=== PATIENT | male | born 1940 | race Caucasian/White ===

== ENCOUNTER 2019-03-26 07:48 | Outpatient (CLI) | payer MEDICARE | END 2019-03-26 07:49 | disposition home or self-care (01) | LOC: DI 07:48 | PROVIDERS: ATTEND Internal Medicine Cardiovascular Disease | DX: R06.02 Shortness of breath (principal); I77.810 Thoracic aortic ectasia | CPT/HCPCS: 93306 ==

== ENCOUNTER 2019-09-25 12:50 | Outpatient (CLI) | payer MEDICARE, OTHER | END 2019-09-25 12:51 | disposition critical access hospital (66) | LOC: EMS 12:50 | PROVIDERS: ATTEND Surgery | DX: R55 Syncope and collapse (principal) | CPT/HCPCS: A0425; A0429 ==

== ENCOUNTER 2019-09-25 13:13 | Inpatient (IN) | payer MEDICARE, OTHER ==
--- NOTE | 2019-09-25 13:23 | ED Physician Documentation ---
PD HPI SYNCOPE - Stated complaint Stated Complaint: SYNCOPE - Chief complaint Chief Complaint: Neuro - History obtained from History obtained from: Patient (79-year-old gentleman with type 2 diabetes and hypertension. He has a history of vagal reactions. He was sitting at lunch, had just finished lunch actually and has syncope. There was no premonition. Reportedly hit his head on the way down but denies any complaints now. He did not know he was coming, there was no chest pain, trouble breathing, or dizziness before hand. On the way here his vital signs were unremarkable and his blood sugar was about 130.), EMS Review of Systems Ten Systems: 10 systems reviewed and negative Constitutional: reports: Reviewed and negative Cardiac: denies: Chest pain / pressure, Palpitations Respiratory: denies: Dyspnea, Cough PD PAST MEDICAL HISTORY - Present Medications Home Medications: Ambulatory Orders Medication Instructions Recorded Confirmed Metformin HCl [Metformin HCl ER] 1,000 mg PO BID 09/25/19 09/25/19 lisinopriL [Prinivil] 20 mg PO DAILY 09/25/19 09/25/19 - Allergies Allergies/Adverse Reactions: Allergies Allergy/AdvReac Type Severity Reaction Status Date / Time No Known Drug Allergies Allergy Verified 09/25/19 13:22 PD ED PE NORMAL - Vitals Vital signs reviewed: Yes - General General: Alert and oriented X 3, No acute distress - HEENT HEENT: PERRL, EOMI - Neck Neck: Supple, no meningeal sign, No bony TTP - Cardiac Cardiac: RRR, No murmur - Respiratory Respiratory: No respiratory distress, Clear bilaterally - Abdomen Abdomen: Non tender - Back Back: No CVA TTP, No spinal TTP - Derm Derm: No rash - Extremities Extremities: No edema, No calf tenderness / cord - Neuro Neuro: Alert and oriented X 3, Normal speech Results - Vitals Vitals: Vital Signs - 24 hr 09/25/19 13:18 Temperature 36.9 C Heart Rate 58 L Respiratory 16 Rate Blood Pressure 154/84 H O2 Saturation 99 Oxygen O2 Source Room air - EKG (time done) 1326 Rate: Rate (enter#) (67) Rhythm: NSR Hendrix: Normal Intervals: RBBB QRS: Normal Ischemia: Normal ST segments Computer interpretation: Agree with computer - Labs Labs: Laboratory Tests 09/25/19 09/25/19 09/25/19 13:39 13:39 13:39 WBC 4.9 RBC 3.99 L Hgb 13.1 L Hct 36.9 L MCV 92.5 MCH 32.8 H MCHC 35.5 RDW 12.1 Plt Count 153 MPV 9.5 Neut # (Auto) 3.2 Lymph # (Auto) 1.0 L Gosper # (Auto) 0.5 Eos # (Auto) 0.2 Baso # (Auto) 0.0 Absolute Nucleated RBC 0.00 Nucleated RBC % 0.0 D-Dimer Sodium 137 Potassium 3.8 Chloride 98 L Carbon Dioxide 26 Anion Gap 13.0 BUN 23 H Creatinine 1.0 Estimated GFR (MDRD) 72 L Glucose 133 H Calcium 9.5 Total Bilirubin 0.8 AST 22 ALT 23 Alkaline Phosphatase 41 L Troponin I High Sens 46.8 H* B-Natriuretic Peptide Total Protein 6.7 Albumin 4.2 Globulin 2.5 Albumin/Globulin Ratio 1.7 Lipase 31 TSH 09/25/19 09/25/19 09/25/19 13:39 13:39 13:39 WBC RBC Hgb Hct MCV MCH MCHC RDW Plt Count MPV Neut # (Auto) Lymph # (Auto) Gosper # (Auto) Eos # (Auto) Baso # (Auto) Absolute Nucleated RBC Nucleated RBC % D-Dimer < 200.0 L Sodium Potassium Chloride Carbon Dioxide Anion Gap BUN Creatinine Estimated GFR (MDRD) Glucose Calcium Total Bilirubin AST ALT Alkaline Phosphatase Troponin I High Sens B-Natriuretic Peptide 51 Total Protein Albumin Globulin Albumin/Globulin Ratio Lipase TSH 0.34 PD MEDICAL DECISION MAKING - ED course ED course: 79-year-old gentleman with hypertension diabetes presents with a concerning episode of syncope without premonition. His EKG was without arrhythmia or ischemia here. He had no chest pain or trouble breathing. He did have a modestly elevated troponin which needs to be trended. Spoke with Dr. Alan for observation. Departure - Departure Disposition: ED Place in Observation Clinical Impression: Syncope Qualifiers: Syncope type: unspecified Qualified Code(s): R55 - Syncope and collapse Condition: Fair Discharge Date/Time: 09/25/19 16:05
[2019-09-25 13:46] LABS: BASOPHILS % (AUTO) 0.8 %; EOSINOPHILS # (AUTO) 0.2 10^3/uL (0.0-0.7); EOSINOPHILS % (AUTO) 3.8 %; HGB - HEMOGLOBIN 13.1 g/dL (14.0-18.0); LYMPHOCYTES % (AUTO) 20.2 %; MEAN CORPUSCULAR HEMOGLOBIN 32.8 pg (27.0-31.0); MEAN CORPUSCULAR HGB CONC 35.5 g/dL (32.0-36.0); MEAN CORPUSCULAR VOLUME 92.5 fL (80.0-94.0); MEAN PLATELET VOLUME 9.5 fL (7.4-11.4); MONOCYTES # (AUTO) 0.5 10^3/uL (0.0-1.0); MONOCYTES % (AUTO) 10.5 %; NEUTROPHILS # (AUTO) 3.2 10^3/uL (1.5-6.6); NEUTROPHILS % (AUTO) 64.3 %; PLT - PLATELET COUNT 153 10^3/uL (130-450); RED BLOOD COUNT 3.99 10^6/uL (4.70-6.10); RED CELL DISTRIBUTION WIDTH 12.1 % (12.0-15.0); WHITE BLOOD COUNT 4.9 x10^3/uL (4.8-10.8)
[2019-09-25 14:00] LABS: ALBUMIN 4.2 g/dL (3.2-5.5); ALBUMIN/GLOBULIN RATIO 1.7 (1.0-2.2); BILIRUBIN,TOTAL 0.8 mg/dL (0.2-1.0); CALCIUM 9.5 mg/dL (8.5-10.3); TOTAL PROTEIN 6.7 g/dL (6.7-8.2)
[2019-09-25] MEDS ORDERED: ONDANSETRON 4 MG/2 ML VIAL IVP PRN (14:54)
[2019-09-25] MEDS ORDERED: SODIUM CHLORIDE FLUSH 0.9% 10 ML SYRINGE IVP PRN (14:54)
[2019-09-25] MEDS ORDERED: ACETAMINOPHEN 325 MG TABLET PO PRN (14:54)
--- NOTE | 2019-09-25 17:13 | HISTORY & PHYSICAL EXAMINATION ---
Chief Complaint - Chief Complaint Chief Complaint: syncope History of Present Illness - History of Present Illness HPI Comment/Other: This is [id number] gentleman with a PMH significant for type 2 diabetes, hypothyroidism, HLD and hypertension who present ER complain of syncope. He report when He was sitting at table after he just finished lunch, then he had syncope. he report he lost his conscience and fall into ground. he denies injury and there was no premonition. He denies chest pain, palpitation, difficult breathing, fever, chill. He report on last year he had twice feeling shortness of breath and at that time he report his BP medication was adjusted, he was found to have hypotension at SBP at 80-90. Then He had all cardiac workup on Feb with his shells inspector which he was told all tests were benign. In Route lab test in ER, he has slight elevated high sensitive troponin at 47. his EKG was without arrhythmia or ischemia change. He denies any chest pain or distress. In ER, his vital signs are unremarkable and hemodynamic stable. pt is admitted for syncope. Pt request full code History - Past Medical History Cardiovascular: reports: Hypertension Neuro: reports: None Endocrine/Autoimmune: reports: Type 2 diabetes Derm: reports: None - Family & Social History Family History: Mother: , Father: Family History Comment/Other: pt report his father from alcoholism, his mother at age 83, he is really unknow the cause of her . Social History Notes: he report he smoked at his teenage, then quited. he denies alcohol and drug issue. Meds/Allgy - Home Medications Home Medications: Ambulatory Orders Medication Instructions Recorded Confirmed Metformin HCl [Metformin HCl ER] 1,000 mg PO BID 09/25/19 09/25/19 lisinopriL [Prinivil] 20 mg PO DAILY 09/25/19 09/25/19 - Allergies Allergies/Adverse Reactions: Allergies Allergy/AdvReac Type Severity Reaction Status Date / Time No Known Drug Allergies Allergy Verified 09/25/19 13:22 Review of Systems - Constitutional Constitutional: denies: Fatigue, Fever, Chills, Malaise, Weakness, Poor appetite, Diaphoresis, Night sweats - Eyes Eyes: denies: Pain, Irritation, Amaurosis, Blurred vision, Spots in vision, Field loss, Vision loss, Dipolpia - Ears, Nose & Throat Ears, Nose & Throat: denies: Ear pain, Hearing loss, Tinnitus, Vertigo, Nasal pain, Nasal discharge, Nosebleeds, Nasal obstruction, Nasal congestion, Postnasal drainage, Dentures, Sore throat, Hoarseness, Mouth lesions, Bleeding gums - Cardiovascular Cariovascular: reports: Syncope. denies: Irregular heart rate, Palpitations, Chest pain, Edema, Lightheadedness, Exertional dyspnea, Decr. exercise tolerance - Respiratory Respiratory: denies: Cough, Sputum production, Wheezing, Snoring, Hemoptysis, Orthopnea, SOB at rest, SOB with exertion - Gastrointestinal Gastrointestinal: denies: Abdominal pain, Abdominal distention, Constipation, Diarrhea, Change in bowel habits, Rectal bleeding, Black stools, Bloody stools, Nausea, Vomiting, Bile emesis, Vicente blood emesis - Genitourinary Genitourinary: denies: Dysuria, Frequency, Urgency, Hematuria, Incontinence, Flank pain, Nocturia, Urethral discharge - Musculoskeletal Musculoskeletal: denies: Muscle pain, Back pain, Muscle aches, Stiffness, Limited range of motion, Muscle weakness, Gout, Joint pain - Integumentary Integumentary: denies: Rash, Pruritis, Dryness, Lumps, Acne, Nail changes - Neurological Neurological: denies: General weakness, Focal weakness, Headache, Dizziness, Numbness, Memory problems, Pre-existing deficit, Seizures, Incoordination, Slurred speech - Psychiatric Psychiatric: denies: Depression, Anxiety, Suicidal, Delusions, Hallucinations, Homicidal - Endocrine Endocrine: denies: Polyuria, Polydypsia, Polyphagia, Intolerance to cold - Hematologic/Lymphatic Hematologic/Lymphatic: denies: Anemia, Bruising, Petechiae, Blood clots, Lymphadenopathy, Bleeding tendencies Exam - Vital Signs Reviewed Vital Signs: Yes Vital Signs: Vital Signs x48h Temp Pulse Pulse Resp BP BP Pulse Ox 09/25/19 17:02 36.5 C 70 18 97 09/25/19 15:55 36.5 C 67 20 135/69 H 97 09/25/19 13:18 36.9 C 58 L 16 154/84 H 99 - Physical Exam General Appearance: positive: No acute distress, Alert. negative: Lethargic Eyes Bilateral: positive: Normal inspection, PERRL, EOMI, No lid inflammation ENT: positive: ENT inspection nml, Pharynx nml, No signs of dehydration. negative: Purulent nasal drainage, Pharyngeal erythema, Oral lesions Neck: positive: Nml inspection, Thyroid nml, No JVD, Trachea midline. negative: Thyromegaly, Lymphadenopathy (R), Lymphadenopathy (L), Stiff neck, Tracheal deviation Respiratory: positive: Chest non-tender, No respiratory distress, Breath sounds nml. negative: Wheezes, Rales, Rhonchi Cardiovascular: positive: Regular rate & rhythm, No murmur, No gallop. negative: Irregularly irregular, Extrasystoles, Tachycardia, Bradycardia, JVD present, Systolic murmur, Diastolic murmur Peripheral Pulses: positive: 2+ Abdomen: positive: Non-tender, No organomegaly, Nml bowel sounds, No distention. negative: Tenderness, Guarding, Rebound Back: positive: Nml inspection. negative: CVA tenderness (R), CVA tenderness (L) Skin: positive: Color nml, No rash, Warm, Dry. negative: Cyanosis, Diaphoresis, Pallor Extremities: positive: Non-tender, Full ROM, Nml appearance. negative: Calf tenderness, Kristi's sign/cords Neurologic/Psychiatric: positive: Oriented x3, Motor nml, Sensation nml, Mood/affect nml. negative: Weakness, Sensory loss, Facial droop, Slurred/abnml speech, Depressed mood/affect Sepsis Event Note (H) - Evaluation Current Stage of Sepsis: Ruled out Conclusion/Plan - Problem List (1) Syncope Conclusion/Plan: pt report he had syncope episode today. he denies injury, denies hx of seizure. slight elevated troponin and unremarkable EKG. he had stress test and all c ardiac work on February of 2019 with his shells inspector. he denies chest pain, palpitation. it is unknown the etiology now order ECHO continue serial troponin tele and vital monitor order US of carotid order orthostatic vital monitor Qualifiers: Syncope type: unspecified Qualified Code(s): R55 - Syncope and collapse (2) DM2 (diabetes mellitus, type 2) Conclusion/Plan: glucose 133 today, pt took Metformin at home. start on slide scale, check A1C, and start hypoglycemia protocol (3) HTN (hypertension) Conclusion/Plan: stable, continue home meds Lisinopril. nurse and tele report pt had second degree heart braulio. order EKG again, and hold Atenolol, continue tele and vital monitor (4) Hypothyroidism Conclusion/Plan: pt report he took Levothyroxine 112 mcg at home, continue and check TSH (5) Elevated troponin Conclusion/Plan: pt has elevated troponin at 47 but pt denies chest pain, and cardiac distress. EKG reveals NSR, repeated EKG reveals similar. Nurse report he had second degree heart braulio but repeated EKG did not reveals that. pt has NSR. continue serial troponin and order tele monitor. order nitro PRN - Lab Results Fish Bones: 09/25/19 13:39 09/25/19 13:39 Core Measures - Anticipated LOS I expect patient to be DC'd or transferred within 96 hours.: Yes - DVT/VTE - Prophylaxis VTE/DVT Device ordered at admit?: Yes VTE/DVT Prophylaxis med ordered at admit?: Yes
[2019-09-25] MEDS: INSULIN ASPART 300 UNIT/3 ML PEN SUBQ SCH ×2 (17:40→21:25)
[2019-09-25] MEDS ORDERED: NITROGLYCERIN SL 0.4 MG TABLET SL PRN (17:53)
[2019-09-25] MEDS: SODIUM CHLORIDE FLUSH 0.9% 10 ML SYRINGE IVP SCH (18:00)
[2019-09-25 20:27] LABS: HB2 TOTAL 13.6 g/dL; HEMOGLOBIN A1C 0.61 g/dL; HEMOGLOBIN A1C % 6.3 % (4.6-6.2)
[2019-09-25] MEDS ORDERED: atenoloL 25 MG TABLET PO SCH (21:00)
[2019-09-25] MEDS ORDERED: lisinopriL 20 MG TABLET PO SCH (21:00)
[2019-09-25] MEDS: FAMOTIDINE 20 MG TABLET PO SCH (21:24)
[2019-09-26] MEDS: SODIUM CHLORIDE FLUSH 0.9% 10 ML SYRINGE IVP SCH ×4 (01:08→21:03)
--- NOTE | 2019-09-26 01:08 | PROVIDER PROGRESS NOTE ---
Gear Tooth Lapping Machine Operator Note - Gear Tooth Lapping Machine Operator Note Gear Tooth Lapping Machine Operator Note: Patient has been having frequent pauses ranging from 2-3 seconds since 5pm on 09/25/2019. As a result the roofer vinyl coating infection control specialist for his roofer vinyl coating (Dr Gibbons) was contacted. Recommendations were to continue monitoring the patient for now. To give at least 48 hours for atenolol to wash out. If pauses become longer, more frequent and patient bradycardic, to administer atropine and re-consult with cardiology for revelation. Pacer pads are in place.
--- NOTE | 2019-09-26 03:08 | Ultrasound Report ---
Reason: syncope Procedure Date: 09/26/2019 Accession Number: [id number] / [id number] Procedure: US - Carotid Doppler Complete CPT Code: Final Report FULL RESULT: EXAM: BILATERAL CAROTID AND VERTEBRAL ARTERY DUPLEX DOPPLER ULTRASOUND EXAM DATE: 09/26/2019 02:03 AM CLINICAL HISTORY: Syncope. COMPARISON: None. TECHNIQUE: Grayscale imaging, color Doppler, and duplex spectral Doppler were used to evaluate the carotid and vertebral arteries bilaterally. Static images were obtained. FINDINGS: No significant plaque is identified in the right or left common or internal carotid arteries. Normal antegrade flow is present in bilateral vertebral arteries. VELOCITIES (cm/sec): Right CCA mid: PSV 75 cm/sec CCA dist: PSV 73 cm/sec ICA prox: PSV 42 cm/sec, EDV 19 cm/sec ICA mid: PSV 58 cm/sec, EDV 22 cm/sec ICA dist: PSV 65 cm/sec, EDV 27 cm/sec ECA: PSV 119 cm/sec Vert: PSV 37 cm/sec ICA/CCA: 0.9 Left CCA mid: PSV 67 cm/sec CCA dist: PSV 61 cm/sec ICA prox: PSV 96 cm/sec, EDV 31 cm/sec ICA mid: PSV 79 cm/sec, EDV 35 cm/sec ICA dist: PSV 70 cm/sec, EDV 25 cm/sec ECA: PSV 116 cm/sec Vert: PSV 58 cm/sec ICA/CCA: 1.2 ICA diameter stenosis: Right: <50% by velocity and <70% by NASCET criteria. Left: <50% by velocity and <70% by NASCET criteria. IMPRESSION: 1. No significant bilateral carotid artery plaquing. 2. In the right carotid artery there are no elevated carotid artery velocities to suggest hemodynamically significant stenosis. 3. In the left carotid artery there are no elevated carotid artery velocities to suggest hemodynamically significant stenosis. 4. Normal antegrade flow is present in bilateral vertebral arteries. General Recommendations: Stenosis =50% ICA - Follow-up ultrasound 6-12 months Stenosis <50% ICA - High Risk Patient with plaque - Follow-up ultrasound 1-2 years Normal Study but High Risk Patient - Follow-up ultrasound 3-5 years Management recommendations and diagnostic criteria are based on current IAC endorsed standards in Carotid Artery Stenosis: Grayscale and Doppler Ultrasound Diagnosis. Validated velocity measurements with angiographic measurements and velocity criteria are extrapolated from diameter data as defined by the Society of Radiologists in Ultrasound Consensus Conference Radiology 2003; 229;340-346. RADIA
[2019-09-26 05:32] LABS: BASOPHILS % (AUTO) 0.8 %; EOSINOPHILS # (AUTO) 0.2 10^3/uL (0.0-0.7); EOSINOPHILS % (AUTO) 4.2 %; HGB - HEMOGLOBIN 12.9 g/dL (14.0-18.0); LYMPHOCYTES # (AUTO) 1.5 10^3/uL (1.5-3.5); LYMPHOCYTES % (AUTO) 32.1 %; MEAN CORPUSCULAR HEMOGLOBIN 31.8 pg (27.0-31.0); MEAN CORPUSCULAR HGB CONC 34.7 g/dL (32.0-36.0); MEAN CORPUSCULAR VOLUME 91.6 fL (80.0-94.0); MEAN PLATELET VOLUME 9.4 fL (7.4-11.4); MONOCYTES # (AUTO) 0.5 10^3/uL (0.0-1.0); MONOCYTES % (AUTO) 10.6 %; NEUTROPHILS # (AUTO) 2.5 10^3/uL (1.5-6.6); NEUTROPHILS % (AUTO) 52.1 %; PLT - PLATELET COUNT 146 10^3/uL (130-450); RED BLOOD COUNT 4.06 10^6/uL (4.70-6.10); RED CELL DISTRIBUTION WIDTH 11.9 % (12.0-15.0); WHITE BLOOD COUNT 4.7 x10^3/uL (4.8-10.8)
[2019-09-26 05:41] LABS: CALCIUM 9.3 mg/dL (8.5-10.3); CREATININE 0.9 mg/dL (0.6-1.2); MAGNESIUM 1.9 mg/dL (1.7-2.8)
[2019-09-26] MEDS: LEVOTHYROXINE 112 MCG TABLET PO SCH (06:40)
[2019-09-26] MEDS ORDERED: lisinopriL 20 MG TABLET PO SCH ×2 (09:00→11:00)
[2019-09-26] MEDS ORDERED: ENOXAPARIN 40 MG/0.4 ML SYRINGE SUBQ SCH (09:00)
[2019-09-26] MEDS: INSULIN ASPART 300 UNIT/3 ML PEN SUBQ SCH ×4 (09:24→21:02)
[2019-09-26] MEDS: FAMOTIDINE 20 MG TABLET PO SCH ×2 (09:24→21:01)
[2019-09-26] MEDS ORDERED: ATROPINE ABBOJECT 1 MG/10 ML SYRINGE IVP PRN (10:33)
--- NOTE | 2019-09-26 10:59 | XRAY Report ---
Reason: syncope and recurrent long cardia pauses Procedure Date: 09/26/2019 Accession Number: [id number] / [id number] Procedure: XR - Chest 1 View X-Ray CPT Code: 99807 Final Report FULL RESULT: EXAM: CHEST RADIOGRAPHY EXAM DATE: 09/26/2019 10:46 AM. CLINICAL HISTORY: Syncope and recurrent long cardia pauses. COMPARISON: None. TECHNIQUE: 1 view. FINDINGS: Defibrillator pad obscures portions of the right hemithorax. ECG leads and unidentified wires are also seen. Lungs/Pleura: No focal opacities evident. No pleural effusion. No pneumothorax. Mediastinum: Aortic calcifications, cardiomediastinal silhouette is otherwise within upper limits of normal for technique. Other: None. IMPRESSION: Limited exam with no convincing acute cardiopulmonary abnormality. RADIA
--- NOTE | 2019-09-26 13:32 | PHARMACY PROGRESS NOTE ---
- Best Possible Medication History Admit Date and Time: 09/26/19 1004 Processed by: Pharmacy Medication History completed: Yes Patient Interview: Completed Secondary Source(s): Physician records, Pharmacy records As the person ultimately responsible for medication therapy, providers are able to order a medication from an existing home medication list in [facility] via the "Reconcile Routine" prior to Confirmation of that medication by student support services director. Such practice is discouraged except when the physician, in their clinical judgment, deems that a medical need exists for a medication without regard to previous use.
--- NOTE | 2019-09-26 13:35 | PROVIDER PROGRESS NOTE ---
Assessment/Plan - Problem List (1) Asystole Assessment/Plan: Since being put on telemetry at 5 PM yesterday, he has had intermittent sinus pauses and asystole between 2 seconds and 6 seconds. There is no pattern as to whether they are decreasing in length or decreasing in frequency, after I reviewed telemetry strips carefully. Will admit to full inpatient status from Observation status due to severe arr hythmia. Will move patient to the ICU, in case of Code Blue from frequent asystoles Keep 1 amp of atropine at bedside. No OOB, only bedrest. Continue with topical pacemaker patches and keep external portable pacemaker available. Theophylline IV drip could be used for increasing heart rate however it is not available at this hospital. Aminophylline IV pushes are only available. I discussed at length with the patient, , 3 daughters and a grand-daughter at bedside, the possibility of needing transfer for a permanent pacemaker implant if there is no improvement after washout of atenolol in the next 24 hours, which is what his Data Management Manager Dr Gibbons had advised to thre Data Virtualization Consultant (he has been here now 24 hours since the last Atenolol dose). (2) Syncope Qualifiers: Syncope type: unspecified Qualified Code(s): R55 - Syncope and collapse Assessment/Plan: After the patient fell from his chair to the floor in his home while having lunch, the was able to awaken him by yelling and shaking and raise him and he sat in a chair. 911 was called and they advised that he be in a more comfor table location so he walked over to a couch but did not raise his legs. When sports bookmaker arrived, his vital signs were stable according to the patient but he was complaining of dizziness. Patient also gave me details about being told he has "vasovagal episodes" which occur if he has a strong cough or a burp, which have happened for the past 5 years, but rarely, occurring about once month. But he had 2 of these episodes immediately before the syncopal episode, he can now recall. Patient has been on Atenolol for 25 years for blood pressure control and he himself moved to bedtime dosing 2 weeks ago. (3) DM2 (diabetes mellitus, type 2) Assessment/Plan: Metformin has been stopped while he is here and he is on CC diet and SS insulin coverage. A1c is 6.3 indicating very good glu control. (4) HTN (hypertension) Assessment/Plan: Lisinopril/HCTZ reordered with hold parameters Atenolol stopped (5) Hypothyroidism Assessment/Plan: Synthroid dose ordered - Current Meds Current Meds: Current Medications Generic Name Dose Route Start Last Admin Trade Name Freq PRN Reason Stop Dose Admin Famotidine 20 mg 09/25/19 21:00 09/26/19 09:24 Pepcid PO Not Given BID [facility] Insulin Aspart 1 - 5 unit 09/25/19 17:00 09/26/19 11:39 Novolog SUBQ Not Given 0800,1200,1700,2100 [facility] Protocol Levothyroxine Sodium 112 mcg 09/26/19 07:00 09/26/19 06:40 Synthroid PO 112 mcg QDAC [facility] Administration Sodium Chloride 10 ml 09/25/19 17:00 09/26/19 09:24 Normal Saline Flush 0.9% IVP 10 ml 0100,0900,1700 [facility] Administration - Lab Result Fish Bone Diagrams: 09/26/19 05:20 09/26/19 05:20 - Additional Planning My Orders: My Active Orders 09/26/19 10:29 Daily Weight [RC] 0600 Initiate ICU Electrolyte Prot. [RC] QSHIFT Vital Signs [RC] Q1HR Code Status [OTHERS] Routine 09/26/19 10:31 Telemetry- [RC] Q4HR 09/26/19 10:33 Atropine Abboject 1 mg IVP PRN PRN 09/27/19 09:00 lisinopriL [Zestril] 20 mg PO DAILY Subjective - Subjective Patient Reports: Resting Comfortably Objective Vital Signs: Vital Signs - 24 hr 09/25/19 09/25/19 09/25/19 15:55 17:02 20:00 Temperature 36.5 C 36.5 C 36.5 C Heart Rate 70 Heart Rate [ 66 Brachial] Heart Rate [ 67 Radial] Heart Rate [ Sitting (After 1 Minute)] Heart Rate [ Standing (After 1 Minute)] Heart Rate [ Supine] Respiratory 20 18 20 Rate Blood Pressure 135/69 H [Left Brachial artery] Blood Pressure 125/62 [Right Brachial artery] Blood Pressure [Sitting (After 1 Minute)] Blood Pressure [Standing ( After 1 Minute) ] Blood Pressure [Supine] O2 Saturation 97 97 97 09/25/19 09/26/19 09/26/19 20:05 00:15 00:46 Temperature 36.6 C Heart Rate Heart Rate [ 70 Brachial] Heart Rate [ Radial] Heart Rate [ 70 73 Sitting (After 1 Minute)] Heart Rate [ 72 78 Standing (After 1 Minute)] Heart Rate [ 69 66 Supine] Respiratory 18 Rate Blood Pressure [Left Brachial artery] Blood Pressure 116/64 [Right Brachial artery] Blood Pressure 128/72 118/71 [Sitting (After 1 Minute)] Blood Pressure 109/64 109/66 [Standing ( After 1 Minute) ] Blood Pressure 126/64 118/65 [Supine] O2 Saturation 09/26/19 09/26/19 09/26/19 05:00 08:19 09:00 Temperature 36.2 C L 36.6 C Heart Rate Heart Rate [ 63 68 Brachial] Heart Rate [ Radial] Heart Rate [ 70 Sitting (After 1 Minute)] Heart Rate [ 78 Standing (After 1 Minute)] Heart Rate [ 73 Supine] Respiratory 18 16 Rate Blood Pressure [Left Brachial artery] Blood Pressure 104/54 L 105/56 L [Right Brachial artery] Blood Pressure 116/76 [Sitting (After 1 Minute)] Blood Pressure 111/76 [Standing ( After 1 Minute) ] Blood Pressure 117/69 [Supine] O2 Saturation 93 95 09/26/19 09/26/19 09/26/19 10:45 11:37 12:00 Temperature 36.7 C Heart Rate Heart Rate [ 63 66 75 Brachial] Heart Rate [ Radial] Heart Rate [ Sitting (After 1 Minute)] Heart Rate [ Standing (After 1 Minute)] Heart Rate [ Supine] Respiratory 20 16 16 Rate Blood Pressure 126/71 140/76 H 136/79 H [Left Brachial artery] Blood Pressure [Right Brachial artery] Blood Pressure [Sitting (After 1 Minute)] Blood Pressure [Standing ( After 1 Minute) ] Blood Pressure [Supine] O2 Saturation 97 98 98 09/26/19 13:00 Temperature Heart Rate Heart Rate [ 67 Brachial] Heart Rate [ Radial] Heart Rate [ Sitting (After 1 Minute)] Heart Rate [ Standing (After 1 Minute)] Heart Rate [ Supine] Respiratory 14 Rate Blood Pressure 132/81 H [Left Brachial artery] Blood Pressure [Right Brachial artery] Blood Pressure [Sitting (After 1 Minute)] Blood Pressure [Standing ( After 1 Minute) ] Blood Pressure [Supine] O2 Saturation 98 Oxygen O2 Source Room air I&O (Last 24 Hrs): Intake and Output Totals x24h 09/24/19 09/25/19 09/26/19 23:59 23:59 23:59 Intake Total 930 730 Balance 930 730 General: Alert, Oriented x3 HEENT: Mucous membr. moist/pink Neck: Supple, No JVD Neuro: Alert, Non Focal Cardiovascular: Regular rate, No murmurs Abdomen: Normal bowel sounds, Soft Extremities: No edema - Results Results: Laboratory Results WBC 4.7 x10^3/uL (4.8-10.8) L 09/26/19 05:20 RBC 4.06 10^6/uL (4.70-6.10) L 09/26/19 05:20 Hgb 12.9 g/dL (14.0-18.0) L 09/26/19 05:20 Hct 37.2 % (42.0-52.0) L 09/26/19 05:20 MCV 91.6 fL (80.0-94.0) 09/26/19 05:20 MCH 31.8 pg (27.0-31.0) H 09/26/19 05:20 MCHC 34.7 g/dL (32.0-36.0) 09/26/19 05:20 RDW 11.9 % (12.0-15.0) L 09/26/19 05:20 Plt Count 146 10^3/uL (130-450) 09/26/19 05:20 MPV 9.4 fL (7.4-11.4) 09/26/19 05:20 Neut # (Auto) 2.5 10^3/uL (1.5-6.6) 09/26/19 05:20 Lymph # (Auto) 1.5 10^3/uL (1.5-3.5) 09/26/19 05:20 [place] # (Auto) 0.5 10^3/uL (0.0-1.0) 09/26/19 05:20 Eos # (Auto) 0.2 10^3/uL (0.0-0.7) 09/26/19 05:20 Baso # (Auto) 0.0 10^3/uL (0.0-0.1) 09/26/19 05:20 Absolute Nucleated RBC 0.00 x10^3/uL 09/26/19 05:20 Nucleated RBC % 0.0 /100WBC 09/26/19 05:20 Whole Blood INR 1.0 (0.8-1.2) 09/26/19 11:08 D-Dimer < 200.0 ng/mL (200.0-255.0) L 09/25/19 13:39 Sodium 141 mmol/L (135-145) 09/26/19 05:20 Potassium 3.8 mmol/L (3.5-5.0) 09/26/19 05:20 Chloride 104 mmol/L (101-111) 09/26/19 05:20 Carbon Dioxide 26 mmol/L (21-32) 09/26/19 05:20 Anion Gap 11.0 (6-13) 09/26/19 05:20 BUN 19 mg/dL (6-20) 09/26/19 05:20 Creatinine 0.9 mg/dL (0.6-1.2) 09/26/19 05:20 Estimated GFR (MDRD) 82 (>89) L 09/26/19 05:20 Glucose 132 mg/dL (70-100) H 09/26/19 05:20 Glycated Hemoglobin 6.3 % (4.6-6.2) H 09/25/19 19:53 Estim Average Glucose 134 (70-100) H 09/25/19 19:53 Calcium 9.3 mg/dL (8.5-10.3) 09/26/19 05:20 Magnesium 1.9 mg/dL (1.7-2.8) 09/26/19 05:20 Total Bilirubin 0.8 mg/dL (0.2-1.0) 09/25/19 13:39 AST 22 IU/L (10-42) 09/25/19 13:39 ALT 23 IU/L (10-60) 09/25/19 13:39 Alkaline Phosphatase 41 IU/L (42-121) L 09/25/19 13:39 Troponin I High Sens 40.7 ng/L (2.3-19.7) H* 09/25/19 19:53 B-Natriuretic Peptide 51 pg/mL (5-100) 09/25/19 13:39 Total Protein 6.7 g/dL (6.7-8.2) 09/25/19 13:39 Albumin 4.2 g/dL (3.2-5.5) 09/25/19 13:39 Globulin 2.5 g/dL (2.1-4.2) 09/25/19 13:39 Albumin/Globulin Ratio 1.7 (1.0-2.2) 09/25/19 13:39 Lipase 31 U/L (22-51) 09/25/19 13:39 TSH 0.36 uIU/mL (0.34-5.60) 09/26/19 05:20 Nasal Screen MRSA (PCR) NEGATIVE (NEGATIVE) 09/26/19 10:50 Sepsis Event Note (H) - Evaluation Current Stage of Sepsis: Ruled out
[2019-09-27 05:06] LABS: BASOPHILS % (AUTO) 0.7 %; EOSINOPHILS # (AUTO) 0.2 10^3/uL (0.0-0.7); EOSINOPHILS % (AUTO) 3.7 %; LYMPHOCYTES # (AUTO) 1.6 10^3/uL (1.5-3.5); LYMPHOCYTES % (AUTO) 27.9 %; MEAN CORPUSCULAR HEMOGLOBIN 32.7 pg (27.0-31.0); MEAN CORPUSCULAR HGB CONC 34.6 g/dL (32.0-36.0); MEAN CORPUSCULAR VOLUME 94.5 fL (80.0-94.0); MEAN PLATELET VOLUME 9.3 fL (7.4-11.4); MONOCYTES # (AUTO) 0.7 10^3/uL (0.0-1.0); MONOCYTES % (AUTO) 11.4 %; NEUTROPHILS # (AUTO) 3.2 10^3/uL (1.5-6.6); NEUTROPHILS % (AUTO) 56.1 %; PLT - PLATELET COUNT 148 10^3/uL (130-450); RED BLOOD COUNT 3.98 10^6/uL (4.70-6.10); WHITE BLOOD COUNT 5.7 x10^3/uL (4.8-10.8)
[2019-09-27 05:20] LABS: ALBUMIN 3.8 g/dL (3.2-5.5); CALCIUM 9.1 mg/dL (8.5-10.3); PHOSPHORUS 3.8 mg/dL (2.5-4.6)
[2019-09-27] MEDS: LEVOTHYROXINE 112 MCG TABLET PO SCH (06:58)
[2019-09-27] MEDS: INSULIN ASPART 300 UNIT/3 ML PEN SUBQ SCH ×2 (07:48→12:14)
[2019-09-27] MEDS: FAMOTIDINE 20 MG TABLET PO SCH (08:50)
[2019-09-27] MEDS: SODIUM CHLORIDE FLUSH 0.9% 10 ML SYRINGE IVP SCH (08:50)
[2019-09-27] MEDS ORDERED: lisinopriL 20 MG TABLET PO SCH (09:00)
--- NOTE | 2019-09-27 12:22 | DISCHARGE SUMMARY ---
Discharge Summary Admit Date: 09/25/19 Discharge Date: 09/27/19 Discharging Provider: Dr Clarissa Alan Primary Care Provider: Dr Pola Renner Code Status: Attempt Resuscitation Condition at Discharge: Fair Discharge Disposition: 02 Transfer Acute Care Hosp Dis[facility]: [facility] - DIAGNOSES Admission Diagnoses: (1) Syncope (2) DM2 (diabetes mellitus, type 2) (3) HTN (hypertension) (4) Hypothyroidism (5) Elevated troponin Discharge Diagnoses with Status of Each Condition: See below - HPI History of Present Illness: From the admission H&P of Romel Rodriguez NP: This is a 79-year-old gentleman with a PMH significant for type 2 diabetes, hypothyroidism, HLD and hypertension who present ER complaint of syncope. He report when he was sitting at a table after he just finished lunch, then he had syncope. He reported he lost his conscience and fall into ground falling on his left face. He denies injury and there was no warning. He denies chest pain, palpitation, difficult breathing, fever, chill. He reported that last year he had several episodes of feeling shortness of breath and at that time he report his BP medication was adjusted, he was found to have hypotension at SBP at 80- 90. Then He had all cardiac workup on February of 2019 with his full stack web developer which he was told all tests were benign. In Route lab test in ER, he has slight elevated high sensitive troponin at 47. his EKG was without arrhythmia or ischemia change. He denies any chest pain or distress. In ER, his vital signs are unremarkable and hemodynamic stable. pt is admitted for syncope. Pt request full code status. - CONSULTS | PROCEDURES Consultations: Phone call with covering Advertising Sales Assistant for Dr Gibbons on 09/26/19 - HOSPITAL COURSE Hospital Course: (1) Asystole The patient has been on Atenolol daily for 25 years for blood pressure control, and he himself moved it to bedtime dosing just 2 weeks ago. Since being put on telemetry at admission, he had frequent sinus pauses in asystole lasting between 2 seconds and 6 seconds long. The Atenolol was stopped. The [place] reached his Advertising Sales Assistant's covering partner who advised allowing 48 hours of Atenolol wash-out to see if asystoles decreased. He was admitted to full Inpatient status from Observation status due to severe tamika-arrhythmia, and moved to the ICU, in case of Code Blue from frequent asystoles, and had topical pacer pads attached and Atropine at the bedside in case needed. After allowing 48-hours without Atenolol or any heart rate slowing meds, there was no decrease in the frequency or length of pauses in asystole, and he was accepted in transfer to Cardiology at [facility] for a likely permanent pacemaker implant. (2) Syncope After the patient fell from his chair to the floor in his home while having [facility], the was able to awaken him by yelling and shaking and raised him and he sat in a chair. 911 was called and they advised that he be in a more comfortable location so he walked over to a couch but did not raise his legs. When apartment groundskeeper arrived, his vital signs were stable according to the patient but he was complaining of dizziness. Patient also gave details about being told he has "vasovagal episodes" which occur if he has a strong cough or a burp, which have happened for the past 5 years, but rarely, occurring about once month. But he had 2 of these episodes immediately before the syncopal episode, he can now recall. (3) DM2 (diabetes mellitus, type 2) Metformin has been stopped while he was here, in case of need for imaging with dye. He was on CC diet and SS insulin coverage. A1c is 6.3 indicating very good glu control. (4) HTN (hypertension) Lisinopril/HCTZ were reordered with hold parameters, but Atenolol was stopped. (5) Hypothyroidism The TSH was 0.34 and his Synthroid dose was ordered here. - ALLERGIES Allergies/Adverse Reactions: Allergies Allergy/AdvReac Type Severity Reaction Status Date / Time No Known Drug Allergies Allergy Verified 09/25/19 13:22 - MEDICATIONS Home Medications: Ambulatory Orders Medication Instructions Recorded Confirmed Metformin HCl [Metformin HCl ER] 1,000 mg PO BID 09/25/19 09/25/19 Alpha Lipoic Acid 250 mg PO QDBREAKFAST 09/26/19 09/26/19 Alpha Lipoic Acid 350 mg PO QPM 09/26/19 09/26/19 Aspirin Chewable [[place] 81 mg PO DAILY 09/26/19 09/26/19 Aspirin] Atorvastatin [Lipitor] 10 mg PO QPM 09/26/19 09/26/19 Biotin 2,500 mcg PO DAILY 09/26/19 09/26/19 Cholecalciferol (Vitamin D3) 2,000 unit PO DAILY 09/26/19 09/26/19 [Vitamin D3] Chromium Picolinate 200 mcg PO DAILY 09/26/19 09/26/19 Levothyroxine [Synthroid] 112 mcg PO QDAC 09/26/19 09/26/19 Lisinopril/Hydrochlorothiazide 1 tab PO DAILY 09/26/19 09/26/19 [Lisinopril-Hctz 20-12.5 mg Tab] Magnesium Citrate 200 mg PO BID 09/26/19 09/26/19 Multivitamin [Theragran] 1 each PO DAILY 09/26/19 09/26/19 Nitroglycerin 0.4 mg SL Q5M PRN 09/26/19 09/26/19 [place]-3S/Dha/Epa/Fish Oil [Fish 1 each PO BID 09/26/19 09/26/19 Oil 1,200 mg Softgel] Turmeric 1 cap PO DAILY 09/26/19 09/26/19 Vitamin E 400 unit PO DAILY 09/26/19 09/26/19 - PHYSICAL EXAM AT DISCHARGE General Appearance: positive: No acute distress, Alert Eyes Bilateral: positive: Normal inspection, EOMI ENT: positive: ENT inspection nml, No signs of dehydration Neck: positive: Nml inspection, No JVD Respiratory: positive: No respiratory distress, Breath sounds nml Cardiovascular: positive: No murmur, Bradycardia Abdomen: positive: Non-tender, Nml bowel sounds, No distention Skin: positive: Color nml Extremities: positive: No pedal edema Neurologic/Psychiatric: positive: Oriented x3, Other (Non-focal) - LABS Result Diagrams: 09/27/19 04:20 09/27/19 04:20 - DIAGNOSTIC IMAGING Diagnostic Imaging Results: Final report reviewed - FOLLOW UP Follow Up: This will be determined after his stay at [facility]. - TIME SPENT Time Spent in Discharge (Minutes): 60
--- NOTE | 2019-09-27 12:22 | Discharge Plan ---
Discharge Plan Problem Reviewed?: Yes Disposition: 02 Transfer Acute Care Hosp Condition: Fair Instruction Topics: Famotidine tablets or gelcaps No Smoking: If you smoke, Please STOP! Call for help. Follow-up with: Pola Renner MD [Primary Care Provider] -
[2019-09-27 14:05] VITALS: BP 118/83
== END 2019-09-27 14:26 | disposition short-term general hospital (02) | DRG 298 ==
LOC: EDUNIT# → ED 13:13 → MS2 14:55 → OBSVTOIN 09-26 10:04 → ICU 09-26 10:34
PROVIDERS: ADMIT Nurse Practitioner Gerontology; ATTEND Internal Medicine
DX: I46.9 Cardiac arrest, cause unspecified (principal); R55 Syncope and collapse; E11.9 Type 2 diabetes mellitus without complications; E78.5 Hyperlipidemia, unspecified; E03.9 Hypothyroidism, unspecified; I10 Essential (primary) hypertension; R79.89 Other specified abnormal findings of blood chemistry; Z79.84 Long term (current) use of oral hypoglycemic drugs; Z87.891 Personal history of nicotine dependence; Z91.81 History of falling
CPT/HCPCS: 36415; 71045; 80048; 80053; 82040; 83036; 83690; 83735; 83880; 84100; 84443; 84484; 85025; 85379; 85610; 87150; 93005; 93306; 93880; 99284; 99285; A9270; G0378

== ENCOUNTER 2019-09-27 14:35 | Outpatient (CLI) | payer MEDICARE, OTHER | END 2019-09-27 14:36 | disposition short-term general hospital (02) | LOC: EMS 14:35 | PROVIDERS: ATTEND Surgery | DX: I49.9 Cardiac arrhythmia, unspecified (principal) | CPT/HCPCS: A0425; A0426 ==

== ENCOUNTER 2022-02-07 18:59 | Outpatient (CLI) | payer MEDICARE, OTHER | END 2022-02-07 19:00 | disposition left against medical advice (07) | LOC: EMS 18:59 | DX: S61.212A Laceration without foreign body of right middle finger without damage to nail, initial encounter (principal); W20.8XXA Other cause of strike by thrown, projected or falling object, initial encounter; Y92.007 Garden or yard of unspecified non-institutional (private) residence as the place of occurrence of the external cause ==

== ENCOUNTER 2022-02-07 19:45 | Emergency (ER) | payer MEDICARE, OTHER ==
[2022-02-07] MEDS ORDERED: TETANUS/DIPHTHERIA/PERTUSSIS 0.5 ML SYRINGE IM ONE (20:13)
[2022-02-07] MEDS ORDERED: BACITRACIN ZINC OINT 1 PACKET TOP STA (20:13)
--- NOTE | 2022-02-07 20:45 | ED Physician Documentation ---
History of Present Illness - Stated complaint Stated Complaint: RT FINGER LAC - Chief complaint Chief Complaint: Laceration - Additonal information Additional information: 81-year-old male presents emergency department for evaluation of a rather large laceration on the dorsum of his right index finger sustained when he cut it on glass in the garden. Uncertain of last tetanus. [id number]. Review of Systems Constitutional: denies: Fever, Chills Eyes: reports: Reviewed and negative Nose: reports: Reviewed and negative Throat: reports: Reviewed and negative Cardiac: reports: Reviewed and negative Respiratory: reports: Reviewed and negative Skin: reports: Laceration (s) PD PAST MEDICAL HISTORY - Past Medical History Cardiovascular: Hypertension Neuro: None Endocrine/Autoimmune: Type 2 diabetes Derm: None - Present Medications Home Medications: Ambulatory Orders Medication Instructions Recorded Confirmed Metformin HCl [Metformin HCl ER] 1,000 mg PO BID 09/25/19 09/25/19 Alpha Lipoic Acid 250 mg PO QDBREAKFAST 09/26/19 09/26/19 Alpha Lipoic Acid 350 mg PO QPM 09/26/19 09/26/19 Aspirin Chewable [[place] 81 mg PO DAILY 09/26/19 09/26/19 Aspirin] Atorvastatin [Lipitor] 10 mg PO QPM 09/26/19 09/26/19 Biotin 2,500 mcg PO DAILY 09/26/19 09/26/19 Cholecalciferol (Vitamin D3) 2,000 unit PO DAILY 09/26/19 09/26/19 [Vitamin D3] Chromium Picolinate 200 mcg PO DAILY 09/26/19 09/26/19 Levothyroxine [Synthroid] 112 mcg PO QDAC 09/26/19 09/26/19 Lisinopril/Hydrochlorothiazide 1 tab PO DAILY 09/26/19 09/26/19 [Lisinopril-Hctz 20-12.5 mg Tab] Magnesium Citrate 200 mg PO BID 09/26/19 09/26/19 Multivitamin [Theragran] 1 each PO DAILY 09/26/19 09/26/19 Nitroglycerin 0.4 mg SL Q5M PRN 09/26/19 09/26/19 [place]-3S/Dha/Epa/Fish Oil [Fish 1 each PO BID 09/26/19 09/26/19 Oil 1,200 mg Softgel] Turmeric 1 cap PO DAILY 09/26/19 09/26/19 Vitamin E 400 unit PO DAILY 09/26/19 09/26/19 - Allergies Allergies/Adverse Reactions: Allergies Allergy/AdvReac Type Severity Reaction Status Date / Time No Known Drug Allergies Allergy Verified 02/07/22 19:59 - Social History Smoking Status: Former smoker PD ED PE EXPANDED - Extremities Extremities: Right finger(s) (4 cm laceration on dorsum of right middle finger extending across the PIP joint. He does have preserved flexion extension against resistance. Bleeding is controlled with pressure.) Results - Vitals Vitals: Vital Signs - 24 hr 02/07/22 19:55 Temperature 36.6 C Heart Rate 72 Respiratory 16 Rate Blood Pressure 151/74 H O2 Saturation 97 Oxygen O2 Source Room air Procedures - Laceration (location) Right middle finger Length in cm: 4 Wound type: Irregular, Into subcut fat, Into muscle, Clean Neurovascular status: Sensory intact, Motor intact, Vascular intact Tendon involvement: Tendon intact Anesthesia: Lidocaine 1% Wound preparation: Chlorhexadine, Irrigated copiously NS Skin layer closure: Interrupted, Sutures - enter # (7) Other: Patient tolerated well, No complications, Tetanus booster given PD MEDICAL DECISION MAKING - ED course Complexity details: reviewed results, re-evaluated patient, considered differential, d/w patient ED course: 81-year-old male presents emergency department for a laceration on his right middle finger sustained when cut on glass in the garden. Tetanus was updated today. Laceration did not reveal any findings of tendon injury. Wound was easily closed at the bedside. Routine wound care and emergent return precautions were discussed Departure - Departure Disposition: 01 Home, Self Care Clinical Impression: Laceration of middle finger Qualifiers: Encounter type: initial encounter Damage to nail status: without damage Foreign body presence: without foreign body Laterality: right Qualified Code(s): S61.212A - Laceration without foreign body of right middle finger without damage to nail, initial encounter Condition: Stable Record reviewed to determine appropriate education?: Yes Instructions: ED Laceration All Comments: Your suture(s) should be removed in 10-14 days. In 24 hours you may remove the dressing wash gently with warm soap and water, apply any antibiotic ointment and a simple bandage. Your tetanus is up-to-date. Please attempt to keep your wound clean and dry. Do not submerge it in dirty dishwater or bath water. In order to prevent disruption of wound healing for at least the next week I do recommend that you continue to wear your finger in the extension splint. Return to the emergency department if you have any concerns of infection such as redness, fevers milky drainage increased pain.
[2022-02-07 20:53] VITALS: BP 146/74
== END 2022-02-07 20:54 | disposition home or self-care (01) ==
LOC: ED 19:45
DX: S61.212A Laceration without foreign body of right middle finger without damage to nail, initial encounter (principal); W25.XXXA Contact with sharp glass, initial encounter; E11.9 Type 2 diabetes mellitus without complications; Z79.84 Long term (current) use of oral hypoglycemic drugs; Z23 Encounter for immunization; Z71.85 Encounter for immunization safety counseling
CPT/HCPCS: 12052; 90471; 90715; 99283; A9270